=== PATIENT | male | born 1980 | race Caucasian/White ===

== ENCOUNTER 2025-02-01 07:29 | Emergency (ER) | payer MEDICAID ==
[~2025-02-01] VITALS: Ht 172.7 cm; Wt 64.0 kg
[2025-02-01 07:35] VITALS: O2SAT 99
[2025-02-01] MEDS ORDERED: CEPH500C2 MT (08:27)
[2025-02-01] MEDS ORDERED: SULF1TAB48 MT (08:27)
[2025-02-01 08:30] VITALS: BP 116/75; PULSE 72; RESP 16; TEMP 36.5; O2SAT 99
[2025-02-01] MEDS: CEPHALEXIN 250MG CAPSULE PO ONE (08:38)
== END 2025-02-01 08:43 | disposition home or self-care (01) ==
LOC: ER 07:29
DX: L03.211 Cellulitis of face (principal); Z79.899 Other long term (current) drug therapy
CPT/HCPCS: 99283

== ENCOUNTER 2025-06-01 17:27 | Emergency (ER) | payer MEDICAID ==
[~2025-06-01] VITALS: Ht 170.2 cm; Wt 72.0 kg
[~2025-06-01 17:27] MED LIST: CEPH500C2 MT; SULF1TAB48 MT
[2025-06-01 17:47] VITALS: O2SAT 100
[2025-06-01] MEDS: ACETAMINOPHEN 500MG TABLET PO ONE (20:04)
[2025-06-01] MEDS: LIDOCAINE 5% PATCH TOP SCH (20:05)
[2025-06-01] MEDS: KETOROLAC 30MG/ML VIAL IM ONE (20:05)
[2025-06-01] MEDS ORDERED: ACET-2708 MT (20:48)
[2025-06-01] MEDS ORDERED: LIDO-53 TP (20:48)
[2025-06-01] MEDS ORDERED: IBUP-1455 MT (20:48)
[2025-06-01 21:01] VITALS: BP 123/73; PULSE 65; RESP 16; TEMP 36.7; O2SAT 99
== END 2025-06-01 21:03 | disposition home or self-care (01) ==
LOC: ER 17:27
DX: S16.1XXA Strain of muscle, fascia and tendon at neck level, initial encounter (principal); X58.XXXA Exposure to other specified factors, initial encounter; Y93.89 Activity, other specified; Y92.89 Other specified places as the place of occurrence of the external cause; Y99.8 Other external cause status
CPT/HCPCS: 96372; 99283; J1885; Z7610